=== PATIENT | female | born 1960 | race Caucasian/White ===

== ENCOUNTER 2021-07-12 17:03 | Emergency (ER) | payer BC ==
[~2021-07-12] VITALS: Ht 165.1 cm; Wt 86.2 kg
--- NOTE | 2021-07-14 13:22 | EKG ---
[facility] [address] [facility] [place], [place] [address] S[address] Sinus tachycardia Nonspecific ST abnormality Abnormal ECG No previous ECGs available Confirmed by MEGAN HERNANDEZ MD ([id number] on 07/14/2021 1:22:21 PM Electronically Signed By: MEGAN HERNANDEZ MD 07/14/21 1322 PATIENT NAME: RUBA CH Electrocardiogram DATE OF : 60 PHYSICIAN: MEGAN HERNANDEZ MD REPORT #: [id number] REPORT IS CONFIDENTIAL AND NOT TO BE RELEASED WITHOUT AUTHORIZATION
== END 2021-07-12 19:24 | disposition home or self-care (01) ==
LOC: ED 17:03
DX: R00.0 Tachycardia, unspecified (principal); E86.0 Dehydration; I10 Essential (primary) hypertension
CPT/HCPCS: 71045; 80053; 81001; 83735; 84443; 84484; 85025; 85379; 93005; 93010; 99285-25